=== PATIENT | female | born 1990 | race African-American/Black ===

== ENCOUNTER 2021-01-08 16:53 | Emergency (ER) | payer SELFPAY ==
[~2021-01-08] VITALS: Ht 170.2 cm; Wt 85.0 kg
[2021-01-08] MEDS ORDERED: SODIUM CHLORIDE 0.9% 1,000 ML IV ONE (17:30)
[2021-01-08 18:05] LABS: CHLORIDE 105 mEq/L (98-107)
[2021-01-08 18:07] LABS: BASOPHILS % 0.3 % (0.0-2.0); EOSINOPHILS % 0.1 % (0.0-5.0); HEMATOCRIT. 33.9 % (36.0-48.0); HEMOGLOBIN. 10.9 g/dL (12.0-16.0); LYMPHOCYTES % 15.9 % (20.0-50.0); MEAN CORPUSCULAR HEMOGLOBIN 27.5 pg (28.0-32.0); MEAN CORPUSCULAR VOLUME 85.3 fL (81.0-99.0); MEAN PLATELET VOLUME 8.3 fl (7.4-10.4); NEUTROPHILS % 79.7 % (40.0-76.0); PLATELET 334 x1000/uL (130-400); RED BLOOD CELL COUNT 3.97 mill/uL (4.2-5.4); RED CELL DISTRIBUTION WIDTH 13.3 % (11.6-14.6)
[2021-01-08 18:09] LABS: HCG SCREEN NEGATIVE
[2021-01-08 18:12] LABS: PROTHROMBIN TIME 10.3 sec (9.6-11.0)
[2021-01-08 19:01] VITALS: BP 150/90
== END 2021-01-08 19:04 | disposition home or self-care (01) ==
LOC: ER 16:53
DX: N93.8 Other specified abnormal uterine and vaginal bleeding (principal); Z98.890 Other specified postprocedural states
CPT/HCPCS: 36415; 80053; 84703; 85025; 85610; 93005; 96360; 99284; J7030